=== PATIENT | male | born 2000 | race Caucasian/White ===

== ENCOUNTER 2025-01-29 16:50 | Emergency (ER) | payer OTHER, SELFPAY ==
--- NOTE | 2025-01-29 16:58 | ED_ITS ---
HPI - General Adult General Chief complaint: Upper Respiratory Infection Stated complaint: Sinus Source: patient Mode of arrival: ambulatory Limitations: no limitations History of Present Illness HPI narrative: Patient is a 24-year-old male presenting with complaint sinus. Symptoms reported include congestion, cough, rhinorrhea, headache, body aches. Symptoms began 2 days ago. Reports known direct sick contacts over the past weekend but denies knowing the diagnosis. No tx initiated [employer]. NO additional complaints. Related Data Home Medications ?Medication ?Instructions ?Recorded ?Confirmed ?Last Taken ?Type No Home Medications 01/29/25 01/29/25 U nknown History Allergies Allergy/AdvReac Type Severity Reaction Status Date / Time No Known Allergies Allergy Verified 01/29/25 17:02 Review of Systems Review of Systems: CONSTITUTIONAL: Reports body aches, denies fever, chills, or sweats. EYES: Denies visual changes, redness, or discharge. ENT: Reports rhinorrhea, congestion, denies sore throat, or otalgia. CARDIOVASCULAR: Denies chest pain, palpitations, or edema. RESPIRATORY: Reports cough denies dyspnea. GASTROINTESTINAL: Denies abdominal pain, nausea, vomiting, or diarrhea. GENITOURINARY: Denies dysuria or hematuria. SKIN: Denies rash, itching, or wounds. MUSCULOSKELETAL: Denies back pain, joint pain, or myalgia. NEUROLOGIC: reports headache, denies numbness, tingling, or weakness. PSYCH: Denies depression or anxiety. All systems reviewed & are unremarkable except as noted in HPI and below Exam Narrative: GENERAL: Well-appearing, well-nourished, and in no acute distress. HEAD: Normocephalic, atraumatic. EYES: EOMI. No redness or drainage. Conjunctivae normal. ENT: Mucous membranes pink and moist. Nares clear. No rhinorrhea. TMs normal bilaterally. Throat normal. Uvula midline. No trismus. Voice is normal. Sinuses are nontender to palpation. NECK: Normal AROM. Supple. No lymphadenopathy. CHEST: No respiratory distress. Clear to auscultation. HEART: Regular rate and rhythm. No murmur appreciated. Normal peripheral pulses. EXTREMITIES: Normal range of motion. SKIN: Warm, dry, no rash. Capillary refill normal. Normal skin turgor. NEURO: No focal deficits. Alert and oriented x3. Gait steady. PSYCH: Normal affect. No signs of depression or anxiety. Course Course Emergency Course: Discussed elevated blood pressure readings with patient and advised daily BP monitoring and f/u with PCP if persisting. Level of Care: Express Care Visit Vital Signs Vital signs: Vital Signs Temperature 98.3 F 01/29/25 17:08 Pulse Rate 102 H 01/29/25 17:08 Respiratory Rate 18 01/29/25 17:08 Blood Pressure 134/88 01/29/25 17:08 Pulse Oximetry 98 01/29/25 17:08 Temperature 98.3 F 01/29/25 17:08 Pulse Rate 102 H 01/29/25 17:08 Respiratory Rate 18 01/29/25 17:08 Blood Pressure 134/88 01/29/25 17:08 Pulse Oximetry 98 01/29/25 17:08 [facility] Differential Diagnosis Differential Diagnosis: COVID, flu, strep, other viral URI Lab Data [facility] Lab Attestation statement: I personally reviewed the patient's lab results. Labs: COVID, flu negative Discharge Plan Discharge Clinical Impression: Upper respiratory infection, Elevated blood pressure reading in office without diagnosis of hypertension Patient Disposition: Home Condition: Stable Instructions: Antibiotic Form, Viral Syndrome (ED) Additional Instructions: Go straight to ER should your symptoms become worse or should any new symptoms develop Patient Language: Latvian Prescriptions: No Action No Home Medications Follow-up/Referrals: [facility]AN[facility] MARIE [Primary Care Provider, Medical] - 01/30/25 Time of Disposition: 17:22
[2025-01-29 17:08] VITALS: BP 134/88; PULSE 102; RESP 18; TEMP 36.8; O2SAT 98
[2025-01-29 18:02] LABS: EDCOVIDSCREEN Negative (Negative); EDINFLUASCREEN Negative (Negative); EDINFLUBSCREEN Negative (Negative)
== END 2025-01-29 17:25 | disposition home or self-care (01) ==
PROVIDERS: Emergency Provider Registered Nurse
DX: J06.9 Acute upper respiratory infection, unspecified (principal); R03.0 Elevated blood-pressure reading, without diagnosis of hypertension; Z20.822 Contact with and (suspected) exposure to COVID-19
CPT/HCPCS: 87426; 87804; 99212; G0463